=== PATIENT | male | born 1955 | race Caucasian/White ===

== ENCOUNTER 2021-01-23 06:28 | Day surgery (SDC) | payer OTHER ==
[~2021-01-23] VITALS: Ht 180.3 cm; Wt 91.0 kg
[2021-01-23] MEDS ORDERED: BENZOCAINE AEROSOL SPRAY 20%, 60ML TP PRN (07:00)
[2021-01-23] MEDS ORDERED: TAMS-11 PO (07:07)
[2021-01-23 07:08] VITALS: BP 175/65
[2021-01-23] MEDS ORDERED: FURO-93 PO (07:08)
[2021-01-23] MEDS ORDERED: FINA5TAB PO (07:08)
[2021-01-23] MEDS ORDERED: PROPOFOL 10 MG/ML, 20ML ONE (08:01)
[2021-01-23] MEDS ORDERED: SODIUM CHLORIDE 0.9% 1,000 ML IV SCH (09:00)
[2021-01-23 09:33] LABS: CALCIUM 8.4 mg/dL (8.5-10.1)
[2021-01-23 09:36] LABS: BASOPHILS % (AUTO) 1 % (0-1); EOSINOPHILS % (AUTO) 4 % (1-7); LYMPHOCYTES % (AUTO) 25 % (22-44); MEAN CORPUSCULAR HEMOGLOBIN 34.6 pg (27.5-34.5); MEAN CORPUSCULAR HGB CONC 34.6 g/dL (33.2-36.2); MEAN PLATELET VOLUME 9.1 fL (7.4-10.4); MONOCYTES % (AUTO) 7 % (2-9); NEUTROPHILS % (AUTO) 63 % (42-75); PLATELET COUNT 165 x10^3/uL (130-400); RED BLOOD COUNT 4.52 x10^6/uL (4.38-5.82); RED CELL DISTRIBUTION WIDTH 13.4 % (9.4-14.8)
[2021-01-23 09:45] LABS: ANION GAP 4 mmol/L (5-15); CHLORIDE 109 mmol/L (98-107)
[2021-01-23] MEDS ORDERED: MIDAZOLAM 1 MG/ML, 2ML ONE (09:53)
[2021-01-23] MEDS ORDERED: HEPARIN 1,000 UNITS/ML, 10ML ONE (09:53)
[2021-01-23] MEDS ORDERED: FENTANYL PF 100 MCG/2ML ONE (09:53)
[2021-01-23] MEDS ORDERED: VERAPAMIL 2.5 MG/ML, 2ML ONE (09:53)
[2021-01-23] MEDS ORDERED: LIDOCAINE-MPF 1%, 5ML ONE (09:53)
== END 2021-01-23 13:00 | disposition home or self-care (01) ==
LOC: CACL 06:28
PROVIDERS: ATTEND Internal Medicine Cardiovascular Disease
DX: I35.1 Nonrheumatic aortic (valve) insufficiency (principal); I25.10 Atherosclerotic heart disease of native coronary artery without angina pectoris; I25.83 Coronary atherosclerosis due to lipid rich plaque; I50.31 Acute diastolic (congestive) heart failure; Z20.822 Contact with and (suspected) exposure to COVID-19; Z79.899 Other long term (current) drug therapy
CPT/HCPCS: 36415; 80048; 85025; 87635; 93312; 93325; 93458; 93567; 99156; C1769; C1894; J1644; J2250; J2704; J3010; Q9967